=== PATIENT | female | born 1955 | race African-American/Black ===

== ENCOUNTER 2020-07-06 16:08 | Inpatient (IN) | payer OTHER ==
[~2020-07-06] VITALS: Ht 180.3 cm; Wt 120.2 kg
[2020-07-06] MEDS ORDERED: MORPHINE SULFATE 2 MG/ML SYR 1ML IV STA (18:06)
[2020-07-06] MEDS ORDERED: ONDANSETRON HCL INJ 2MG/ML 2ML 2 MG/ML VIAL IV STA (18:06)
--- NOTE | 2020-07-06 18:08 | Diagnostic Imaging Report ---
EXAMINATION: CXR 1 [facility] INDICATION: Cough. COMPARISON: None FINDINGS: TUBES and LINES: None. LUNGS: Normal lung volumes. There is patchy airspace opacities at the bilateral lung bases. No consolidations. PLEURA: No pleural effusion or pneumothorax. HEART AND MEDIASTINUM: The cardiomediastinal silhouette is unremarkable. BONES AND SOFT TISSUES: No acute osseous lesion. There is an indeterminate dense structure projecting over the right axilla. UPPER ABDOMEN: No free air under the diaphragm. IMPRESSION: Patchy airspace opacities at the bilateral lung bases which may represent atelectasis and/or multifocal pneumonia in the proper clinical context. Signed by: Caden Billings MD on 07/06/2020 6:04 PM
[2020-07-06] MEDS ORDERED: CEFTRIAXONE SOD 1 GM VIAL IV ONE (19:00)
[2020-07-06] MEDS ORDERED: MORPHINE SULFATE INJ 4 MG/ML INJ 1ML IV STA (19:09)
--- NOTE | 2020-07-06 19:43 | Emergency Department Note ---
History of Present Illnes History of Present Illness Chief Complaint: COVID PUI History of Present Illness This is a 65 year old female Chief Complaint Comment C/O CHEST PAIN AND COUGH, PAIN ACROSS WITH COUGH AND DEEP BREATHS X 2 - 3 WEEKS. 1PPD SMOKER X 35 YEARS . Historian: Patient Arrival Mode: Car Onset (how long ago): day(s) (2) Location: SUBSTERNAL Quality: DULL Radiation: Reports non-radiation Severity: mild Onset quality: gradual Duration (how long): day(s) (2) Timing of current episode: intermittent Progression: waxing and waning Chronicity: new Context: Denies recent illness, Denies recent surgery, Denies recent immobilization, Denies recent travel, Denies trauma/injury, Denies new medications, Denies hx of DVT/PE, Denies non-compliance w/ medications, Denies other Relieving factors: none Exacerbating factors: other (COUGH) Associated symptoms: Reports chest pain; Denies denies other symptoms, Denies confusion, Denies diaphoresis, Denies fever/chills, Denies headaches, Denies loss of appetite, Denies malaise, Denies nausea/vomiting, Denies rash, Denies seizure, Denies shortness of breath, Denies syncope, Denies weakness, Denies other Treatments prior to arrival: none Past Medical/Family History Physician Review I have reviewed the patient's past medical and family history. Any updates have been documented here. Past Medical History Recent Fever: No Clinical Suspicion of Infectio: No New/Unexplained Change in Ment: No Past Medical History: Hypertension, Diabetes, CVA, Hypothyroidism, Hyperlipedemia Past Surgical History: Cholecysctectomy, Hysterectomy Other Surgery: THYROID Social History Smoking Cessation: Current every day smoker Alcohol Use: Occasional Any Illegal Drug Use: No Other Any Pre-Existing Lines (PICC,: No Review of Systems Review of Systems Constitutional: Reports no symptoms EENTM: Reports no symptoms Cardiovascular: Reports as per HPI Respiratory: Reports as per HPI Gastrointestinal: Reports no symptoms Genitourinary: Reports no symptoms Musculoskeletal: Reports no symptoms Integumentary: Reports no symptoms Neurological: Reports no symptoms Psychological: Reports no symptoms Endocrine: Reports no symptoms Hematological/Lymphatic: Reports no symptoms Physical Exam Related Data Allergies: Coded Allergies: ibuprofen (Verified Allergy, Mild, NOSE BLEEDS, 9/23/20) Triage Vital Signs Vital Signs Date Time Temp Pulse Resp B/P (MAP) Pulse Ox O2 Delivery O2 Flow Rate FiO2 07/06/20 16:22 98.5 102 16 150/83 100 Room Air Vital signs reviewed: Yes Physical Exam CONSTITUTIONAL Constitutional: Present well-developed, Present well-nourished HENT HENT: Present normocephalic, Present atraumatic, Present oropharynx clear/moist, Present nose normal HENT L/R: Present left ext ear normal, Present right ext ear normal EYES Eyes: Reports PERRL, Reports conjunctivae normal NECK Neck: Present ROM normal PULMONARY Pulmonary: Present effort normal, Present rhonchi CARDIOVASCULAR Cardiovascular: Present regular rhythm, Present heart sounds normal, Present capillary refill normal, Present normal rate GASTROINTESTINAL Abdominal: Present soft, Present nontender, Present bowel sounds normal GENITOURINARY Genitourinary: Present exam deferred SKIN Skin: Present warm, Present dry MUSCULOSKELETAL Musculoskeletal: Present ROM normal NEUROLOGICAL Neurological: Present alert, Present oriented x 3, Present no gross motor or sensory deficits PSYCHOLOGICAL Psychological: Present mood/affect normal, Present judgement normal Results Laboratory Lab results reviewed: Yes Imaging Imaging results reviewed: Yes Procedures 12 Lead ECG Interpretation ECG Interpretation : ECG: ECG 1 (0) Cytotechnologist: Interpreted by ED physician Date: Jul 06, 2020 Time: 16:16 Rhythm: sinus rhythm Rate: normal BPM: 95 QRS axis: normal ST segments normal: Yes T waves normal: Yes Assessment & Plan Medical Decision Making MDM CAD PNEUMONIA Reassessment Reassessment BETTER Assessment & Plan Final Impression: (1) Chest pain (2) Pneumonia Depart Disposition: TRANS TO OTHER [facility] Last Vital Signs Date Time Temp Pulse Resp B/P (MAP) Pulse Ox O2 Delivery O2 Flow Rate FiO2 07/06/20 19:04 80 20 160/77 95 Room Air 07/06/20 16:22 98.5 Medications in the ED Morphine Sulfate 2 mg NOW STAT IV Last administered on 07/06/20at 18:16; Admin Dose 2 MG; Start 07/06/20 at 18:06; Stop 07/06/20 at 19:31; Status DC Ondansetron HCl 4 mg NOW STAT IV Last administered on 07/06/20at 18:16; Admin Dose 4 MG; Start 07/06/20 at 18:06; Stop 07/06/20 at 19:33; Status DC Ceftriaxone Sodium 1 gm ONCE ONCE IV Last administered on 07/06/20at 19:19; Admin Dose 1 GM; Start 07/06/20 at 19:00; Stop 07/06/20 at 19:28; Status DC Morphine Sulfate 2 mg NOW STAT IV ; Start 07/06/20 at 19:09; Stop 07/06/20 at 19:31; Status DC LOIBTO GUPTA MD Jul 06, 2020 19:43
[2020-07-06] MEDS ORDERED: ASPIRIN 325 MG TAB PO ONE ×2 (19:45→20:00)
[2020-07-06] MEDS ORDERED: MORPHINE SULFATE 2 MG/ML SYR 1ML IV PRN (20:00)
[2020-07-06] MEDS ORDERED: ASPIRIN 81 MG CHEW TAB PO ONE (20:00)
[2020-07-06] MEDS ORDERED: SODIUM CHLORIDE 0.9% 1000ML 1,000 ML IV SCH (20:00)
[2020-07-06] MEDS ORDERED: ONDANSETRON HCL INJ 2MG/ML 2ML 2 MG/ML VIAL IV PRN (20:00)
[2020-07-06] MEDS ORDERED: ASPIRIN 325 MG TAB ONE (21:05)
[2020-07-06] MEDS ORDERED: MORPHINE SULFATE INJ 4 MG/ML INJ 1ML ONE (21:06)
[2020-07-06] MEDS ORDERED: SODIUM CHLORIDE 0.9% 1000ML 1,000 ML ONE (21:06)
[2020-07-06 23:06] VITALS: BP 157/83
--- NOTE | 2020-07-07 13:30 | History and Physical ---
The patient was in the emergency room. She is transferred to [facility]. The patient is a 65-year-old female came in with chest pain with cough, breathing problem for the past 2-3 weeks. The patient is a one pack per day smoker for over 30 years. The patient's emergency room workup including lab work that was done. She also has a serology test and Coronavirus PCR that was not detected. The patient had a chest x-ray done, found to have patchy old airspace opacity at bilateral lung bases, which may represent multifocal pneumonia. The patient was transferred to [facility] prior to been seen by me. The patient was transferred to the emergency room. I discussed with the patient's RN. Again, the patient was transferred from the emergency room to [facility]. Reason for transfer, please review the nursing note and emergency note. MD KORTNEY Perez/RAVINDRA /[id number]
== END 2020-07-06 23:06 | disposition short-term general hospital (02) | DRG 195 ==
LOC: FSED 16:52 → ERHOLD 19:55
PROVIDERS: ADMIT Internal Medicine; ATTEND Internal Medicine
DX: J18.9 Pneumonia, unspecified organism (principal); R07.9 Chest pain, unspecified; F17.200 Nicotine dependence, unspecified, uncomplicated; Z11.59 Encounter for screening for other viral diseases
CPT/HCPCS: 71045; 80048; 80076; 83880; 84484; 85025; 87040; 93005; 99284; J0696; J2270; J2405; J7030; U0002